=== PATIENT | male | born 1950 | race Caucasian/White ===

== ENCOUNTER 2019-09-23 08:33 | Inpatient (IN) | payer MEDICARE ==
[~2019-09-23] VITALS: Ht 177.8 cm; Wt 94.5 kg
[~2019-09-23 08:33] MED LIST: LOP25T PO
[2019-09-23] MEDS ORDERED: normal saline 1000ML IV soln IV ONE (08:45)
[2019-09-23 09:34] LABS: BASOPHILS # (AUTO) 0.1 X10'3 (0-0.2); BASOPHILS % (AUTO) 1.1 % (0-1); EOSINOPHILS % (AUTO) 0.6 % (0-6); HEMATOCRIT 50.9 % (42.0-52.0); HEMOGLOBIN 17.9 g/dl (14.0-17.9); LYMPHOCYTES # (AUTO) 1.8 X10'3 (1.1-4.8); LYMPHOCYTES % (AUTO) 25.5 % (21-51); MEAN CORPUSCULAR HEMOGLOBIN 33.4 PG (27.0-31.0); MEAN CORPUSCULAR HGB CONC 35.2 g/dL (33.0-36.5); MEAN CORPUSCULAR VOLUME 94.9 FL (78-98); MEAN PLATELET VOLUME 8.4 FL (7.4-10.4); MONOCYTES # (AUTO) 0.7 X10'3 (0-0.9); MONOCYTES % (AUTO) 9.8 % (2-12); NEUTROPHILS # (AUTO) 4.4 X10'3 (1.8-7.7); PLATELET COUNT 169 X10'3 (140-440); RED BLOOD COUNT 5.36 X10'6 (4.70-6.10); RED CELL DISTRIBUTION WIDTH 13.8 % (11.5-14.5)
[2019-09-23] MEDS ORDERED: CefTRIAXone 2gm/D5W 50ml 50 ML IV ONE (10:10)
[2019-09-23 10:14] LABS: CLARITY,URINE CLEAR (Clear); COLOR,URINE YELLOW (Yellow); GLUCOSE, URINE NEGATIVE (Neg); KETONES,URINE NEGATIVE (Neg); LEUKOCYTE ESTERASE ,URINE NEGATIVE (Neg); NITRITES, URINE NEGATIVE (Neg); OCCULT BLOOD,URINE NEGATIVE (Neg); PROTEIN,URINE 100 mg/dl (Neg)
[2019-09-23 10:15] LABS: UA COLLECTION TYPE STRAIGHT CATH
[2019-09-23 10:16] LABS: ANION GAP 6 (8-16); BILIRUBIN,TOTAL 1.2 MG/DL (0.1-1.0); BLOOD UREA NITROGEN 22 MG/DL (7-18); CALCIUM 9.1 MG/DL (8.5-10.1); CHLORIDE 100 MMOL/L (99-107); CREATININE 1.84 MG/DL (0.60-1.10); GLUCOSE 99 MG/DL (70-104); POTASSIUM 3.8 MMOL/L (3.5-5.1); SODIUM 135 MMOL/L (135-145); TOTAL CARBON DIOXIDE 28.6 MMOL/L (24-32); TOTAL PROTEIN 7.8 G/DL (6.4-8.2); eGFR 37 ML/MIN
[2019-09-23 10:17] LABS: ALANINE AMINOTRANSFERASE 16 U/L (12-78); ALBUMIN/GLOBULIN RATIO 1.1 (1.1-1.5); ALKALINE PHOSPHATASE 115 IU/L (46-116); ASPARTATE AMINO TRANSFERASE 17 U/L (10-37); ETHANOL < 0.010 GM/DL (0.0-0.010)
[2019-09-23] MEDS ORDERED: acetaminophen 325mg tablet PO PRN ×2 (10:20)
[2019-09-23] MEDS ORDERED: magnesium 2GM in 50ml NS 50 ML IV PRN (10:20)
[2019-09-23] MEDS ORDERED: ondansetron/PF 4mg/2ml inj IV PRN (10:20)
[2019-09-23] MEDS ORDERED: potassium Cl 20 mEq SR tablet PO PRN ×2 (10:20)
[2019-09-23] MEDS ORDERED: mag hydrox/Alum hydrox/simeth 30ml oral suspension PO PRN (10:20)
[2019-09-23] MEDS ORDERED: normal saline 1000ml 1,000 ML IV ONE (10:20)
[2019-09-23] MEDS ORDERED: magnesium 4gm in 100ml NS 100 ML IV PRN (10:20)
[2019-09-23] MEDS ORDERED: potassium CL 10mEq/100ml bag 100 ML IV PRN ×2 (10:20)
[2019-09-23] MEDS ORDERED: magnesium Cl slow-release 64mg tablet PO PRN (10:20)
[2019-09-23] MEDS ORDERED: magnesium hydroxide 30ml (MOM) UD suspension PO PRN (10:20)
[2019-09-23 10:21] LABS: BACTERIA,URINE 1+ /HPF (Neg); RBC,URINE 0-2 /HPF (0-2); SQUAMOUS EPITHELIAL CELL,UR FEW /LPF (FEW); WBC,URINE 0-4 /HPF (0-4)
[2019-09-23] MEDS ORDERED: DULO-31 PO (10:27)
[2019-09-23] MEDS ORDERED: ALBU18HF2 INH (10:27)
[2019-09-23] MEDS ORDERED: GABA600T13 PO (10:27)
[2019-09-23] MEDS ORDERED: pneumococcal 23-VAL P-sac vacc 25 mcg/0.5ml vial IMVAC ONE (11:40)
[2019-09-23 11:51] LABS: URINE AMPHETAMINE SCREEN NEGATIVE (Neg); URINE BARBITUATE SCREEN NEGATIVE (Neg); URINE BENZODIAZEPINES SCREEN NEGATIVE (Neg); URINE CANNABINOID SCREEN NEGATIVE (Neg); URINE COCAINE SCREEN NEGATIVE (Neg); URINE METHADONE SCREEN NEGATIVE (Neg); URINE OPIATE SCREEN NEGATIVE (Neg); URINE PHENCYCLIDINE SCREEN NEGATIVE (Neg)
[2019-09-23 18:00] VITALS: BP 115/65
[2019-09-23] MEDS: K and/or MAG REPLACEMENT MC SCH (20:00)
[2019-09-23] MEDS ORDERED: albuterol 2.5 MG/3 ML nebule NEB PRN (20:55)
[2019-09-23] MEDS: gabapentin 100mg capsule PO SCH (21:59)
[2019-09-23 22:00] VITALS: BP 158/106
[2019-09-23] MEDS: normal saline 1000ml 1,000 ML IV SCH (22:00)
[2019-09-24 02:06] VITALS: BP 126/76
[2019-09-24 06:00] VITALS: BP 129/72
--- NOTE | 2019-09-24 06:20 | NUR ---
Patient in room ORTHO 4010. I have received report from Aleah and had the opportunity to ask questions and assume patient care.
--- NOTE | 2019-09-24 06:38 | NUR ---
Problems reprioritized. Patient report given, questions answered & plan of care reviewed with JAKE HARDIN.
[2019-09-24] MEDS: K and/or MAG REPLACEMENT MC SCH (07:05)
[2019-09-24 07:30] LABS: BASOPHILS # (AUTO) 0.1 X10'3 (0-0.2); BASOPHILS % (AUTO) 0.7 % (0-1); EOSINOPHILS # (AUTO) 0.1 X10'3 (0-0.9); EOSINOPHILS % (AUTO) 0.9 % (0-6); HEMATOCRIT 45.9 % (42.0-52.0); HEMOGLOBIN 16.2 g/dl (14.0-17.9); LYMPHOCYTES # (AUTO) 1.8 X10'3 (1.1-4.8); LYMPHOCYTES % (AUTO) 22.4 % (21-51); MEAN CORPUSCULAR HEMOGLOBIN 33.1 PG (27.0-31.0); MEAN CORPUSCULAR HGB CONC 35.3 g/dL (33.0-36.5); MEAN CORPUSCULAR VOLUME 93.7 FL (78-98); MEAN PLATELET VOLUME 7.8 FL (7.4-10.4); MONOCYTES # (AUTO) 0.6 X10'3 (0-0.9); MONOCYTES % (AUTO) 7.8 % (2-12); NEUTROPHILS # (AUTO) 5.5 X10'3 (1.8-7.7); NEUTROPHILS % (AUTO) 68.2 % (42-75); PLATELET COUNT 134 X10'3 (140-440); RED CELL DISTRIBUTION WIDTH 13.4 % (11.5-14.5)
[2019-09-24 07:39] LABS: ALBUMIN 3.3 G/DL (3.4-5.0); ANION GAP 3 (8-16); BLOOD UREA NITROGEN 15 MG/DL (7-18); BUN/CREATININE RATIO 13.6 (5.4-32.0); CALCIUM 8.5 MG/DL (8.5-10.1); CHLORIDE 103 MMOL/L (99-107); GLUCOSE 88 MG/DL (70-104); MAGNESIUM 2.1 MG/DL (1.5-2.4); POTASSIUM 4.6 MMOL/L (3.5-5.1); SODIUM 137 MMOL/L (135-145); TOTAL CARBON DIOXIDE 31.2 MMOL/L (24-32); eGFR 67 ML/MIN
[2019-09-24] MEDS: gabapentin 100mg capsule PO SCH ×2 (07:59→13:00)
[2019-09-24] MEDS ORDERED: duloxetine 30mg CAPSULE.DR PO SCH (08:00)
[2019-09-24] MEDS ORDERED: CefTRIAXone 2gm/D5W 50ml 50 ML IV SCH (08:00)
[2019-09-24] MEDS ORDERED: enoxaparin 40mg/0.4ml syringe SQ SCH (08:00)
[2019-09-24] MEDS ORDERED: heparin, porcine 5000 units/ml vial SQ SCH (08:00)
[2019-09-24] MEDS: normal saline 1000ml 1,000 ML IV SCH (08:50)
[2019-09-24 10:00] VITALS: BP 157/97
[2019-09-24] MEDS ORDERED: DULO30CA52 PO (13:51)
[2019-09-24] MEDS ORDERED: AZIT500T PO (13:51)
[2019-09-24] MEDS ORDERED: GABA-532 PO (13:51)
--- NOTE | 2019-09-24 16:05 | NUR ---
Reviewed discharge instructions with pt and spouse. Pt verbalized understanding. Pt is alert, oriented and in good spirits. Rx was provided in paper form to pt due to the holiday. All of pt's belongings were taken home previously by spouse. Pt was wheeled downstairs to be driven home by spouse.
[2019-09-24] MEDS ORDERED: lactobacillus rhamnosus 10,000 MMU CELLS/CAPSULE PO SCH (20:00)
== END 2019-09-24 15:57 | disposition home or self-care (01) | DRG 683 ==
LOC: ER 08:34 → ED HOLD 10:16 → ORTHO 4S 15:24
PROVIDERS: ADMIT Hospitalist; ATTEND Hospitalist
PROC: 3E0234Z Introduction of Serum, Toxoid and Vaccine into Muscle, Percutaneous Approach (ICD-10-PCS; principal; 2019-09-23)
DX: N17.9 Acute kidney failure, unspecified (principal); G93.40 Encephalopathy, unspecified; I48.20 Chronic atrial fibrillation, unspecified; F17.210 Nicotine dependence, cigarettes, uncomplicated; R29.6 Repeated falls; F32.9 Major depressive disorder, single episode, unspecified; G62.9 Polyneuropathy, unspecified; W18.39XA Other fall on same level, initial encounter; Y93.89 Activity, other specified; Y92.89 Other specified places as the place of occurrence of the external cause; Y99.8 Other external cause status; Z23 Encounter for immunization
CPT/HCPCS: 36415; 70450; 71045; 80048; 80053; 80305; 80320; 81001; 82140; 82948; 83605; 83735; 84145; 85025; 87040; 87081; 87502; 87503; 90732; 93005; 93925; 94760; 96374; 99285; G0378; J0696; J1644; J7030

== ENCOUNTER 2021-07-29 14:57 | Inpatient (IN) | payer MEDICARE ==
[~2021-07-29] VITALS: Ht 190.5 cm; Wt 93.4 kg
[~2021-07-29 14:57] MED LIST changes: +ALBU18HF2 INH; +DULO30CA52 PO; +GABA-532 PO; -LOP25T PO
[2021-07-29 15:56] LABS: BASOPHILS % (AUTO) 0.5 % (0-1); EOSINOPHILS % (AUTO) 0.2 % (0-6); HEMATOCRIT 43.5 % (42.0-52.0); HEMOGLOBIN 15.3 g/dl (14.0-17.9); LYMPHOCYTES # (AUTO) 0.6 X10'3 (1.1-4.8); LYMPHOCYTES % (AUTO) 16.1 % (21-51); MEAN CORPUSCULAR HEMOGLOBIN 33.1 PG (27.0-31.0); MEAN CORPUSCULAR HGB CONC 35.3 g/dL (33.0-36.5); MEAN PLATELET VOLUME 7.5 FL (7.4-10.4); MONOCYTES # (AUTO) 0.3 X10'3 (0-0.9); MONOCYTES % (AUTO) 7.5 % (2-12); NEUTROPHILS % (AUTO) 75.7 % (42-75); PLATELET COUNT 124 X10'3 (140-440); RED BLOOD COUNT 4.62 X10'6 (4.70-6.10); RED CELL DISTRIBUTION WIDTH 13.8 % (11.5-14.5); WHITE BLOOD COUNT 3.9 X10'3 (4.5-11.0)
[2021-07-29 16:13] LABS: ALANINE AMINOTRANSFERASE 43 U/L (12-78); ALBUMIN 3.2 G/DL (3.4-5.0); ALBUMIN/GLOBULIN RATIO 0.9 (1.1-1.5); ALKALINE PHOSPHATASE 94 IU/L (46-116); AMMONIA < 10 UMOL/L (11-32); ANION GAP 8 (8-16); ASPARTATE AMINO TRANSFERASE 88 U/L (10-37); BILIRUBIN,TOTAL 0.8 MG/DL (0.1-1.0); BLOOD UREA NITROGEN 20 MG/DL (7-18); BUN/CREATININE RATIO 15.7 (5.4-32.0); CALCIUM 8.1 MG/DL (8.5-10.1); CHLORIDE 102 MMOL/L (99-107); CREATININE 1.27 MG/DL (0.60-1.10); GLUCOSE 98 MG/DL (70-104); POTASSIUM 4.3 MMOL/L (3.5-5.1); SODIUM 137 MMOL/L (135-145); TOTAL PROTEIN 6.9 G/DL (6.4-8.2); eGFR 56 ML/MIN
[2021-07-29 16:16] LABS: LACTIC SEPSIS 0.6 MMOL/L (0.4-2.0)
[2021-07-29 16:18] LABS: TROPONIN I < 0.04 NG/ML (0.0-0.05)
[2021-07-29 16:19] LABS: ETHANOL < 0.010 GM/DL (0.0-0.010)
[2021-07-29] MEDS ORDERED: normal saline 1000ml 1,000 ML IV ONE (16:40)
--- NOTE | 2021-07-29 16:47 | NUR ---
Pt friend (Sergio) [phone]
[2021-07-29 17:17] LABS: COLOR,URINE YELLOW (Yellow); UA COLLECTION TYPE CLN CATCH MIDSTREAM
[2021-07-29 17:18] LABS: CLARITY,URINE CLEAR (Clear); GLUCOSE, URINE NEGATIVE (Neg); KETONES,URINE 15 mg/dl (Neg); LEUKOCYTE ESTERASE ,URINE NEGATIVE (Neg); NITRITES, URINE NEGATIVE (Neg); OCCULT BLOOD,URINE MODERATE (Neg); PROTEIN,URINE TRACE mg/dl (Neg); UROBILINOGEN,URINE 0.2 E.U/dL (0.2-1.0)
[2021-07-29 17:23] LABS: BACTERIA,URINE FEW /HPF (Neg); MUCUS STRANDS FEW /LPF (Neg); RBC,URINE 0-2 /HPF (0-2); SQUAMOUS EPITHELIAL CELL,UR FEW /LPF (FEW); WBC,URINE 0-4 /HPF (0-4)
[2021-07-29 17:27] LABS: URINE AMPHETAMINE SCREEN NEGATIVE (Neg); URINE BARBITUATE SCREEN NEGATIVE (Neg); URINE BENZODIAZEPINES SCREEN NEGATIVE (Neg); URINE CANNABINOID SCREEN NEGATIVE (Neg); URINE COCAINE SCREEN NEGATIVE (Neg); URINE METHADONE SCREEN NEGATIVE (Neg); URINE OPIATE SCREEN NEGATIVE (Neg); URINE PHENCYCLIDINE SCREEN NEGATIVE (Neg)
[2021-07-29] MEDS ORDERED: ketorolac trometh. 30mg/ml inj. IV ONE (18:05)
--- NOTE | 2021-07-29 18:16 | NUR ---
Pt step-daughter (Leland Santana) [phone]
[2021-07-29] MEDS ORDERED: acetaminophen 325mg tablet PO PRN ×2 (18:20)
[2021-07-29] MEDS ORDERED: magnesium hydroxide 30ml (MOM) UD suspension PO PRN (18:20)
[2021-07-29] MEDS ORDERED: morphine 2 MG/ML inj. syringe IV PRN ×2 (18:20)
[2021-07-29] MEDS ORDERED: ondansetron/PF 4mg/2ml inj IV PRN (18:20)
[2021-07-29] MEDS ORDERED: mag hydrox/Alum hydrox/simeth 30ml oral suspension PO PRN (18:20)
[2021-07-29] MEDS ORDERED: CASIRIVIMAB/IMDEVIMAB inject. 10 ML in normal saline 100ml IV soln 100 ML IV ONE (18:45)
--- NOTE | 2021-07-29 18:45 | NUR ---
SPOKE WITH STEP DAUGHTER RE: MED REC, SHE KNOWS HE TAKES GABAPENTIN AND INHALER BUT DOESNT KNOW WHEN HE TOOK MEDS LAST, SHE HAS BEEN TRYING TO GET HIM TO THE DOCTOR BUT HASNT BEEN IN OVER A YEAR.
[2021-07-29 18:58] LABS: PHOSPHORUS 3.4 MG/DL (2.3-4.5)
[2021-07-29] MEDS ORDERED: NO HOME MEDS (19:15)
[2021-07-29] MEDS: dextrose 5%-1/2 normal saline 1,000 ML IV SCH (19:27)
[2021-07-29] MEDS: docusate sod 100mg capsule PO SCH (19:27)
[2021-07-30] MEDS: dextrose 5%-1/2 normal saline 1,000 ML IV SCH ×2 (04:48→14:19)
[2021-07-30] MEDS: docusate sod 100mg capsule PO SCH ×2 (07:02→20:00)
[2021-07-30 08:55] LABS: BASOPHILS % (AUTO) 0.5 % (0-1); EOSINOPHILS % (AUTO) 0.1 % (0-6); HEMATOCRIT 46.7 % (42.0-52.0); LYMPHOCYTES # (AUTO) 1.2 X10'3 (1.1-4.8); LYMPHOCYTES % (AUTO) 23.5 % (21-51); MEAN CORPUSCULAR HEMOGLOBIN 32.1 PG (27.0-31.0); MEAN CORPUSCULAR HGB CONC 34.3 g/dL (33.0-36.5); MEAN CORPUSCULAR VOLUME 93.5 FL (78-98); MONOCYTES # (AUTO) 0.4 X10'3 (0-0.9); MONOCYTES % (AUTO) 8.8 % (2-12); NEUTROPHILS # (AUTO) 3.4 X10'3 (1.8-7.7); NEUTROPHILS % (AUTO) 67.1 % (42-75); PLATELET COUNT 119 X10'3 (140-440); RED CELL DISTRIBUTION WIDTH 14.2 % (11.5-14.5); WHITE BLOOD COUNT 5.1 X10'3 (4.5-11.0)
[2021-07-30 09:16] LABS: ANION GAP 8 (8-16); BLOOD UREA NITROGEN 17 MG/DL (7-18); BUN/CREATININE RATIO 13.8 (5.4-32.0); CHLORIDE 100 MMOL/L (99-107); CREATININE 1.23 MG/DL (0.60-1.10); GLUCOSE 95 MG/DL (70-104); POTASSIUM 3.7 MMOL/L (3.5-5.1); SODIUM 136 MMOL/L (135-145); eGFR 59 ML/MIN
[2021-07-30 09:17] LABS: ALANINE AMINOTRANSFERASE 44 U/L (12-78); ALBUMIN 3.3 G/DL (3.4-5.0); ALBUMIN/GLOBULIN RATIO 0.8 (1.1-1.5); ALKALINE PHOSPHATASE 83 IU/L (46-116); ASPARTATE AMINO TRANSFERASE 106 U/L (10-37); BILIRUBIN,TOTAL 0.9 MG/DL (0.1-1.0); CALCIUM 8.2 MG/DL (8.5-10.1); TOTAL PROTEIN 7.4 G/DL (6.4-8.2)
[2021-07-31] MEDS: dextrose 5%-1/2 normal saline 1,000 ML IV SCH ×3 (00:20→20:20)
[2021-07-31] MEDS: docusate sod 100mg capsule PO SCH ×2 (07:27→20:00)
[2021-07-31 07:54] LABS: BASOPHILS % (AUTO) 0.8 % (0-1); EOSINOPHILS % (AUTO) 0.2 % (0-6); HEMATOCRIT 46.8 % (42.0-52.0); HEMOGLOBIN 16.3 g/dl (14.0-17.9); LYMPHOCYTES # (AUTO) 1.5 X10'3 (1.1-4.8); LYMPHOCYTES % (AUTO) 35.8 % (21-51); MEAN CORPUSCULAR HEMOGLOBIN 32.4 PG (27.0-31.0); MEAN CORPUSCULAR HGB CONC 34.8 g/dL (33.0-36.5); MEAN PLATELET VOLUME 8.1 FL (7.4-10.4); MONOCYTES # (AUTO) 0.4 X10'3 (0-0.9); NEUTROPHILS # (AUTO) 2.2 X10'3 (1.8-7.7); NEUTROPHILS % (AUTO) 53.2 % (42-75); PLATELET COUNT 107 X10'3 (140-440); RED BLOOD COUNT 5.03 X10'6 (4.70-6.10); RED CELL DISTRIBUTION WIDTH 13.9 % (11.5-14.5); WHITE BLOOD COUNT 4.1 X10'3 (4.5-11.0)
[2021-07-31 08:13] LABS: ALANINE AMINOTRANSFERASE 46 U/L (12-78); ALBUMIN 3.1 G/DL (3.4-5.0); ALBUMIN/GLOBULIN RATIO 0.8 (1.1-1.5); ALKALINE PHOSPHATASE 77 IU/L (46-116); ANION GAP 5 (8-16); ASPARTATE AMINO TRANSFERASE 97 U/L (10-37); BILIRUBIN,TOTAL 0.9 MG/DL (0.1-1.0); BLOOD UREA NITROGEN 16 MG/DL (7-18); BUN/CREATININE RATIO 14.7 (5.4-32.0); CALCIUM 8.2 MG/DL (8.5-10.1); CHLORIDE 104 MMOL/L (99-107); CREATININE 1.09 MG/DL (0.60-1.10); GLUCOSE 104 MG/DL (70-104); POTASSIUM 3.7 MMOL/L (3.5-5.1); SODIUM 140 MMOL/L (135-145); TOTAL CARBON DIOXIDE 31.3 MMOL/L (24-32); TOTAL PROTEIN 7.1 G/DL (6.4-8.2); eGFR 67 ML/MIN
--- NOTE | 2021-07-31 12:45 | NUR ---
Got pt out of bed for a Road Test. Pt has strong upper body strength but his legs are too weak to maintain standing up. Pt ate 20% of lunch.
--- NOTE | 2021-07-31 13:00 | NUR ---
Pt had a stool smear. Cleaned and repositioned in bed.
[2021-08-01 06:07] LABS: BASOPHILS % (AUTO) 0.4 % (0-1); EOSINOPHILS % (AUTO) 0.3 % (0-6); HEMATOCRIT 47.2 % (42.0-52.0); HEMOGLOBIN 16.5 g/dl (14.0-17.9); LYMPHOCYTES # (AUTO) 1.3 X10'3 (1.1-4.8); LYMPHOCYTES % (AUTO) 32.2 % (21-51); MEAN CORPUSCULAR HEMOGLOBIN 32.5 PG (27.0-31.0); MEAN CORPUSCULAR HGB CONC 34.9 g/dL (33.0-36.5); MEAN CORPUSCULAR VOLUME 92.9 FL (78-98); MEAN PLATELET VOLUME 8.2 FL (7.4-10.4); MONOCYTES # (AUTO) 0.4 X10'3 (0-0.9); MONOCYTES % (AUTO) 10.3 % (2-12); NEUTROPHILS # (AUTO) 2.3 X10'3 (1.8-7.7); NEUTROPHILS % (AUTO) 56.8 % (42-75); PLATELET COUNT 108 X10'3 (140-440); RED BLOOD COUNT 5.08 X10'6 (4.70-6.10); RED CELL DISTRIBUTION WIDTH 14.1 % (11.5-14.5); WHITE BLOOD COUNT 4.1 X10'3 (4.5-11.0)
[2021-08-01 06:36] LABS: ALANINE AMINOTRANSFERASE 45 U/L (12-78); ALBUMIN 3.1 G/DL (3.4-5.0); ALBUMIN/GLOBULIN RATIO 0.8 (1.1-1.5); ALKALINE PHOSPHATASE 79 IU/L (46-116); ANION GAP 3 (8-16); ASPARTATE AMINO TRANSFERASE 72 U/L (10-37); BILIRUBIN,TOTAL 1.1 MG/DL (0.1-1.0); BLOOD UREA NITROGEN 15 MG/DL (7-18); BUN/CREATININE RATIO 14.9 (5.4-32.0); CALCIUM 8.3 MG/DL (8.5-10.1); CHLORIDE 105 MMOL/L (99-107); CREATININE 1.01 MG/DL (0.60-1.10); GLUCOSE 94 MG/DL (70-104); SODIUM 139 MMOL/L (135-145); TOTAL CARBON DIOXIDE 30.7 MMOL/L (24-32); TOTAL PROTEIN 7.1 G/DL (6.4-8.2); eGFR 73 ML/MIN
[2021-08-01] MEDS: docusate sod 100mg capsule PO SCH (08:00)
--- NOTE | 2021-08-01 08:45 | NUR ---
Patient in room ORTHO 4024. I have received report from Umm JOSEPH and had the opportunity to ask questions and assume patient care.
[2021-08-01 08:57] VITALS: BP 135/93
[2021-08-01] MEDS: dextrose 5%-1/2 normal saline 1,000 ML IV SCH (09:04)
[2021-08-01 10:00] VITALS: BP 129/73
[2021-08-01 14:00] VITALS: BP 129/84
--- NOTE | 2021-08-01 15:16 | NUR ---
I left a message of Gurwinder room mate phone about him being DC'd today..waiting for call back. also I spoke with daughter Marbella and patient is normally unsteady on feet but he can walk. He has a cane and a seated walker at home. Per baseline daughter said that he also is confused at times. Per daughter, when patient , she was on floor for 2 days and patient thought she was just taking a nap.
[2021-08-01] MEDS ORDERED: METO-539 PO (16:22)
[2021-08-01] MEDS ORDERED: ASPI81TA52 PO (16:22)
[2021-08-01 17:53] VITALS: BP_SYST 111; BP_SYST 122; BP_SYST 131; BP_DIAS 82; BP_DIAS 87; BP_DIAS 98
[2021-08-01 18:00] VITALS: BP 141/96
--- NOTE | 2021-08-01 18:22 | NUR ---
Patient report given to Leola JOSEPH
--- NOTE | 2021-08-01 18:54 | NUR ---
Patient in room ORTHO 4024. I have received report from JAKE Castelan and had the opportunity to ask questions and assume patient care.
--- NOTE | 2021-08-01 19:39 | NUR ---
Pt VSS satting 95% on RA. Pt was taken by wheelchair to roomate with his belongings out to "Gurwinder" waiting to pick him up. DC paperwork was gone over with Gurwinder and the patient. The need for a follow up appt with a Dr within one week and where to slate picker DC meds ([facility]; [facility]) was discussed and highlighted in folder. Patient and Gurwinder signed the DC paperwork. Gurwinder said he will slate picker the patient's medications.
== END 2021-08-01 19:40 | disposition home or self-care (01) | DRG 179 ==
LOC: ER 14:57 → ED HOLD 18:23 → OBSVTOIN 18:23 → EDBEDREQ 20:13 → ORTHO 4S 08-01 08:40
PROVIDERS: ADMIT Internal Medicine; ATTEND Internal Medicine
PROC: XW033G6 Introduction of REGN-COV2 Monoclonal Antibody into Peripheral Vein, Percutaneous Approach, New Technology Group 6 (ICD-10-PCS; principal; 2021-07-29)
DX: U07.1 COVID-19 (principal); I48.91 Unspecified atrial fibrillation; F17.210 Nicotine dependence, cigarettes, uncomplicated; F10.20 Alcohol dependence, uncomplicated
CPT/HCPCS: 36415; 70450; 71045; 80053; 80305; 80320; 81001; 82140; 83605; 83735; 83880; 84100; 84145; 84484; 85025; 87081; 87635; 93005; 93306; 96360; 96361; 97116; 97162; 97530; 99285; C9803; G0378; J7030; Q0244

== ENCOUNTER 2021-12-09 18:54 | Inpatient (IN) | payer MEDICARE ==
[~2021-12-09] VITALS: Ht 182.9 cm; Wt 90.9 kg
[2021-12-09] MEDS ORDERED: iohexol 300mg/ml 100ml inj. ONE (19:04)
[2021-12-09 19:32] LABS: BASOPHILS % (AUTO) 0.6 % (0-1); EOSINOPHILS % (AUTO) 0.5 % (0-6); HEMATOCRIT 47.6 % (42.0-52.0); HEMOGLOBIN 16.5 g/dl (14.0-17.9); LYMPHOCYTES # (AUTO) 0.6 X10'3 (1.1-4.8); MEAN CORPUSCULAR HEMOGLOBIN 32.3 PG (27.0-31.0); MEAN CORPUSCULAR HGB CONC 34.7 g/dL (33.0-36.5); MEAN CORPUSCULAR VOLUME 93.1 FL (78-98); MEAN PLATELET VOLUME 7.7 FL (7.4-10.4); MONOCYTES # (AUTO) 0.3 X10'3 (0-0.9); MONOCYTES % (AUTO) 4.9 % (2-12); NEUTROPHILS # (AUTO) 5.3 X10'3 (1.8-7.7); PLATELET COUNT 159 X10'3 (140-440); RED BLOOD COUNT 5.11 X10'6 (4.70-6.10); RED CELL DISTRIBUTION WIDTH 13.4 % (11.5-14.5); WHITE BLOOD COUNT 6.2 X10'3 (4.5-11.0)
[2021-12-09 20:02] LABS: ALANINE AMINOTRANSFERASE 22 U/L (12-78); ALBUMIN 3.5 G/DL (3.4-5.0); ALBUMIN/GLOBULIN RATIO 0.9 (1.1-1.5); ALKALINE PHOSPHATASE 101 IU/L (46-116); ANION GAP 7 (8-16); ASPARTATE AMINO TRANSFERASE 19 U/L (10-37); BILIRUBIN,TOTAL 1.8 MG/DL (0.1-1.0); BLOOD UREA NITROGEN 31 MG/DL (7-18); BUN/CREATININE RATIO 23.3 (5.4-32.0); CALCIUM 8.8 MG/DL (8.5-10.1); CHLORIDE 104 MMOL/L (99-107); CREATININE 1.33 MG/DL (0.60-1.10); GLUCOSE 119 MG/DL (70-104); POTASSIUM 3.9 MMOL/L (3.5-5.1); SODIUM 140 MMOL/L (135-145); TOTAL PROTEIN 7.4 G/DL (6.4-8.2); eGFR 53 ML/MIN
[2021-12-09] MEDS ORDERED: folic acid 1mg tablet PO ONE (22:25)
[2021-12-09] MEDS ORDERED: thiamine 100mg tablet PO ONE (22:25)
[2021-12-09 23:27] LABS: C-REACTIVE PROTEIN 2.27 MG/DL (0.0-0.5); ETHANOL < 0.010 GM/DL (0.0-0.010); MAGNESIUM 1.9 MG/DL (1.5-2.4)
[2021-12-10] MEDS ORDERED: normal saline 1000ml 1,000 ML IV ONE (00:05)
--- NOTE | 2021-12-10 01:37 | NUR ---
pt brief change and in and out cath performed. Urine sent to lab. Pt soiled brief, change and linen change provided. No acute distress noted.
[2021-12-10 01:44] LABS: URINE AMPHETAMINE SCREEN NEGATIVE (Neg); URINE BARBITUATE SCREEN NEGATIVE (Neg); URINE BENZODIAZEPINES SCREEN NEGATIVE (Neg); URINE CANNABINOID SCREEN NEGATIVE (Neg); URINE COCAINE SCREEN NEGATIVE (Neg); URINE METHADONE SCREEN NEGATIVE (Neg); URINE OPIATE SCREEN NEGATIVE (Neg); URINE PHENCYCLIDINE SCREEN NEGATIVE (Neg)
[2021-12-10] MEDS ORDERED: LIDOcaine 2% 10ml TOPICAL JELLY (Urojet) MM ONE (02:40)
--- NOTE | 2021-12-10 03:03 | NUR ---
Pt rre cathed to obtain urine sample. Sample collected and sent to lab for result.
[2021-12-10 03:07] LABS: COLOR,URINE YELLOW (Yellow); GLUCOSE, URINE NEGATIVE (Neg); KETONES,URINE TRACE mg/dl (Neg); LEUKOCYTE ESTERASE ,URINE NEGATIVE (Neg); NITRITES, URINE NEGATIVE (Neg); OCCULT BLOOD,URINE LARGE (Neg); PH,URINE 5.5 (4.8-8.0); PROTEIN,URINE 30 mg/dl (Neg)
[2021-12-10 03:18] LABS: CLARITY,URINE SLIGHTLY CLOUDY (Clear); UA COLLECTION TYPE NON-SPECIFIED
[2021-12-10 03:23] LABS: BACTERIA,URINE NONE SEEN /HPF (Neg); RBC,URINE 20-50 /HPF (0-2); SQUAMOUS EPITHELIAL CELL,UR FEW /LPF (FEW); WBC,URINE NONE SEEN /HPF (0-4)
--- NOTE | 2021-12-10 05:07 | NUR ---
Pt large BM noted, soft and brown. Pt cleaned and linen changed, no acute distress. repositioned in bed. Will cont to monitor throughout.
[2021-12-10] MEDS ORDERED: iohexol 350MG/ML 100ml bottle IV ONE (05:25)
--- NOTE | 2021-12-10 06:09 | NUR ---
Pt transported to CT and back to room 9. Resting comfy. Resp even and unlabored.
--- NOTE | 2021-12-10 07:20 | NUR ---
pt awake. when asked where r u at? pt states Im at [facility].
--- NOTE | 2021-12-10 07:45 | NUR ---
PT AMBULATED TO DOOR OF ROOM WITH 2 PERSON ASST WITH WALKER. PT AMBULATED SLOWLY, SHUFFLE, WHILE DRAGGING LEFT FOOT. PT HAD TO BE ENCOURAGED TO MOVE FEET TO MAKE STEPS BACK TO BED. LEFT FOOT RED AND SWOLLEN. INFORMED DR. GALLOWAY.
--- NOTE | 2021-12-10 07:51 | NUR ---
ASSESSING LEFT FOOT WITH DR. GALLOWAY. NO REDNESS OR SWELLING NOTED.
--- NOTE | 2021-12-10 08:00 | NUR ---
PT UNABLE TO REMEMBER IF HE WAS VACCINATED FOR COVID.
[2021-12-10] MEDS ORDERED: thiamine 100mg tablet PO ONE (08:05)
[2021-12-10] MEDS ORDERED: folic acid 1mg tablet PO ONE (08:05)
[2021-12-10] MEDS ORDERED: mag hydrox/Alum hydrox/simeth 30ml oral suspension PO PRN (08:15)
[2021-12-10] MEDS ORDERED: magnesium hydroxide 30ml (MOM) UD suspension PO PRN (08:15)
[2021-12-10] MEDS ORDERED: HYDROcodone/acetaminophen 5mg/325mg tablet PO PRN (08:15)
[2021-12-10] MEDS ORDERED: ondansetron/PF 4mg/2ml inj IV PRN (08:15)
[2021-12-10] MEDS ORDERED: acetaminophen 325mg tablet PO PRN ×2 (08:15)
[2021-12-10] MEDS ORDERED: morphine 2 MG/ML inj. syringe IV PRN ×2 (08:15)
--- NOTE | 2021-12-10 09:24 | NUR ---
report given to cecilia Jerome. pt going to room 9110i with tele
[2021-12-10 09:45] VITALS: BP 134/92
[2021-12-10] MEDS: normal saline 1000ml 1,000 ML IV SCH ×2 (12:18→19:10)
[2021-12-10] MEDS ORDERED: NO HOME MEDS (12:51)
[2021-12-10 15:00] VITALS: BP 149/98
[2021-12-10 18:00] VITALS: BP 155/82
[2021-12-10] MEDS: docusate sod 100mg capsule PO SCH (19:05)
[2021-12-10 19:46] VITALS: BP 122/69
[2021-12-10 22:00] VITALS: BP 158/88
[2021-12-11] MEDS: normal saline 1000ml 1,000 ML IV SCH (04:17)
[2021-12-11 06:00] VITALS: BP 128/74
[2021-12-11 07:11] LABS: BASOPHILS % (AUTO) 0.6 % (0-1); EOSINOPHILS # (AUTO) 0.1 X10'3 (0-0.9); HEMATOCRIT 43.5 % (42.0-52.0); HEMOGLOBIN 15.2 g/dl (14.0-17.9); LYMPHOCYTES % (AUTO) 18.7 % (21-51); MEAN CORPUSCULAR HEMOGLOBIN 32.7 PG (27.0-31.0); MEAN CORPUSCULAR VOLUME 93.4 FL (78-98); MEAN PLATELET VOLUME 7.9 FL (7.4-10.4); MONOCYTES # (AUTO) 0.5 X10'3 (0-0.9); MONOCYTES % (AUTO) 8.7 % (2-12); PLATELET COUNT 140 X10'3 (140-440); RED BLOOD COUNT 4.66 X10'6 (4.70-6.10); RED CELL DISTRIBUTION WIDTH 13.3 % (11.5-14.5); WHITE BLOOD COUNT 5.6 X10'3 (4.5-11.0)
[2021-12-11 07:14] LABS: ALBUMIN 3.1 G/DL (3.4-5.0); ANION GAP 3 (8-16); BLOOD UREA NITROGEN 17 MG/DL (7-18); BUN/CREATININE RATIO 17.9 (5.4-32.0); CALCIUM 8.5 MG/DL (8.5-10.1); CHLORIDE 106 MMOL/L (99-107); CREATININE 0.95 MG/DL (0.60-1.10); GLUCOSE 101 MG/DL (70-104); POTASSIUM 4.2 MMOL/L (3.5-5.1); SODIUM 137 MMOL/L (135-145); TOTAL CARBON DIOXIDE 28.3 MMOL/L (24-32); eGFR 79 ML/MIN
[2021-12-11] MEDS: docusate sod 100mg capsule PO SCH (08:00)
[2021-12-11] MEDS ORDERED: enoxaparin 40mg/0.4ml syringe SUBCUT SCH (08:00)
[2021-12-11 11:00] VITALS: BP 136/89
[2021-12-11] MEDS ORDERED: METO-539 PO (12:10)
--- NOTE | 2021-12-11 14:13 | NUR ---
pt. given discharge instructions with no further questions. PIV removed, catheter tip intact. Pt. left unit at 1405.
== END 2021-12-11 14:05 | disposition home health service (06) | DRG 641 ==
LOC: ER 18:54 → ED HOLD 12-10 08:16 → PCU 3S 12-10 09:33
PROVIDERS: ADMIT Internal Medicine; ATTEND Internal Medicine
PROC: BW211ZZ Computerized Tomography (CT Scan) of Abdomen and Pelvis using Low Osmolar Contrast (ICD-10-PCS; principal; 2021-12-09)
PROC: B32T1ZZ Computerized Tomography (CT Scan) of Left Pulmonary Artery using Low Osmolar Contrast (ICD-10-PCS; 2021-12-10)
PROC: B3201ZZ Computerized Tomography (CT Scan) of Thoracic Aorta using Low Osmolar Contrast (ICD-10-PCS; 2021-12-10)
PROC: B32S1ZZ Computerized Tomography (CT Scan) of Right Pulmonary Artery using Low Osmolar Contrast (ICD-10-PCS; 2021-12-10)
DX: E86.0 Dehydration (principal); N17.9 Acute kidney failure, unspecified; Z20.822 Contact with and (suspected) exposure to COVID-19; F03.90 Unspecified dementia, unspecified severity, without behavioral disturbance, psychotic disturbance, mood disturbance, and anxiety; F17.210 Nicotine dependence, cigarettes, uncomplicated; I48.0 Paroxysmal atrial fibrillation; I51.7 Cardiomegaly; K43.9 Ventral hernia without obstruction or gangrene; K80.20 Calculus of gallbladder without cholecystitis without obstruction; N40.0 Benign prostatic hyperplasia without lower urinary tract symptoms; F10.20 Alcohol dependence, uncomplicated; R26.2 Difficulty in walking, not elsewhere classified; Z79.899 Other long term (current) drug therapy; Z86.16 Personal history of COVID-19
CPT/HCPCS: 36415; 70450; 71045; 71275; 74177; 80048; 80053; 80305; 80320; 81001; 82140; 83735; 83880; 84443; 84484; 85025; 86140; 87635; 93005; 97116; 97161; 97530; 99285; C9803; G0378; J1650; J7030; Q9967